=== PATIENT | female | born 1965 | race Hispanic/Latino ===

== ENCOUNTER 2017-07-10 06:37 | Emergency (ER) | payer MEDICAID ==
[2017-07-10 06:52] VITALS: BP 120/70; PULSE 86; RESP 18; TEMP 97.8; O2SAT 96
--- NOTE | 2017-07-10 07:28 | ED PDOC ---
HPI: Eye Injury/Pain Time Seen by Provider: 07/10/17 07:05 Chief Complaint (Nursing): Eye Problem Chief Complaint (Provider): Eye Problem History Per: Patient History/Exam Limitations: no limitations Onset/Duration Of Symptoms: Days (x3) Current Symptoms Are (Timing): Still Present Additional Complaint(s): Margo Gutierrez is a 51 year old female that presents to the ED with a chief complaint of right eye pain and swelling that she has been experiencing for the past three days. Patient reports that when her discomfort began she started rubbing her right eyelid, leading to swelling. She states that it has since become slightly red and painful. Patient denies any fever, chills, difficulty moving eye, or any double vision. She additionally states that around two months ago she was seen by her doctor for a similar problem, for which she was put on a course of Tobramycin eye drops and Amoxicillin, which resolved her symptoms. Of Note: Patient's PMD is not available until 07/15/17, which is the reason for her ED visit. Past Medical History Reviewed: Historical Data, Nursing Documentation, Vital Signs Vital Signs: Last Vital Signs Temp 97.8 F 07/10/17 06:49 Pulse 86 07/10/17 06:49 Resp 18 07/10/17 06:49 BP 120/70 07/10/17 06:49 Pulse Ox 96 07/10/17 06:49 - Medical History PMH: Anxiety, Depression Denies: Chronic Kidney Disease - Surgical History Surgical History: Cholecystectomy - Family History Family History: States: Unknown Family Hx - Home Medications Home Medications: Ambulatory Orders Medication Instructions Recorded Aripiprazole [Abilify] 30 mg PO DAILY 01/22/15 Cholecalciferol (Vitamin D3) 1 pow NA WE 01/22/15 [Vitamin D3] Cyanocobalamin [Vitamin B12] mcg PO BID 01/22/15 Fluphenazine Hydrochloride 0.5 mg PO DAILY 01/22/15 [Prolixin] Folic Acid 1 mg PO BID 01/22/15 LORazepam [Ativan] 0.5 mg PO DAILY PRN 01/22/15 Naproxen 375 mg PO Q8 PRN #21 tab 01/22/15 buPROPion XL [Wellbutrin] 150 mg PO DAILY 01/22/15 Naproxen 500 mg PO BID PRN #14 tab 04/03/15 Oxycodone HCl/Acetaminophen 1 tab PO Q6 PRN #10 tab 04/03/15 [Percocet 325 mg-5 mg] Sulfamethoxazole/Trimethoprim 1 tab PO BID #14 tab 07/10/17 [Bactrim DS 800 mg-160 mg] - Allergies Allergies/Adverse Reactions: Allergies Allergy/AdvReac Type Severity Reaction Status Date / Time No Known Allergies Allergy Verified 04/03/15 15:49 Review of Systems ROS Statement: Except As Marked, All Systems Reviewed And Found Negative Constitutional: Negative for: Fever, Chills Eyes: Positive for: Pain (slight pain around right eyelid). Negative for: Vision Change (No double vision or blurred vision) ENT: Negative for: Ear Pain, Nose Congestion, Throat Pain Respiratory: Negative for: Cough Physical Exam - Reviewed Nursing Documentation Reviewed: Yes Vital Signs Reviewed: Yes - Physical Exam Appears: Positive for: Non-toxic, No Acute Distress Head Exam: Positive for: ATRAUMATIC, NORMOCEPHALIC Skin: Positive for: Normal Color, Warm Eye Exam: Positive for: EOMI, PERRL, Other (Upper right eyelid swelling without induration. Mild erythema. There is a small abrasion in the upper eyelid where the edge of the lashes are. There is no periorbital TTP. No palpable step off. ) . Negative for: Normal appearance ENT: Positive for: Normal ENT Inspection, TM Is/Are (unremarkable). Negative for: Nasal Congestion, Pharyngeal Erythema Neck: Positive for: Normal (Normal adenopathy), Supple Cardiovascular/Chest: Positive for: Regular Rate, Rhythm. Negative for: Murmur Respiratory: Positive for: Normal Breath Sounds. Negative for: Wheezing Lymphatic: Negative for: Adenopathy (no neck adenopathy) Neurologic/Psych: Positive for: Alert, Oriented. Negative for: Motor/Sensory Deficits - ECG O2 Sat by Pulse Oximetry: 96 (RA) Pulse Ox Interpretation: Normal Medical Decision Making Medical Decision Making: Impression: Eyelid Infection/Cellulitis Plan: * Patient will be given an Rx for Bactrim and advised to follow up with PMD. Patient is stable for discharge home. Scribe Attestation: Documented by Iliana Jolly, acting as a scribe for Mami Perez MD. Provider Scribe Attestation: All medical record entries made by the Scribe were at my direction and personally dictated by me. I have reviewed the chart and agree that the record accurately reflects my personal performance of the history, physical exam, medical decision making, and the department course for this patient. I have also personally directed, reviewed, and agree with the discharge instructions and disposition Disposition - Clinical Impression Clinical Impression: Blepharitis of eyelid of right eye - Patient ED Disposition Is Patient to be Admitted: No - Disposition Referrals: Radha Ennis MD [Medical Doctor] - Disposition: Routine/Home Disposition Time: 07:25 Condition: STABLE Prescriptions: Sulfamethoxazole/Trimethoprim [Bactrim DS 800 mg-160 mg] 1 tab PO BID #14 tab Instructions: Cellulitis (ED), Blepharitis (ED) Forms: [facility] ([place]), [facility] ED School/Work Excuse
== END 2017-07-10 07:41 | disposition home or self-care (01) ==
LOC: H.ER 06:37
DX: H01.001 Unspecified blepharitis right upper eyelid (principal)

== ENCOUNTER 2017-07-11 07:39 | Emergency (ER) | payer MEDICAID ==
[2017-07-11 07:49] VITALS: TEMP 97
[2017-07-11 07:50] VITALS: BMI 28.8
--- NOTE | 2017-07-11 08:14 | ED PDOC ---
HPI: Eye Injury/Pain Time Seen by Provider: 07/11/17 07:58 Chief Complaint (Nursing): Eye Problem Chief Complaint (Provider): Right Upper eyelid Swelling History/Exam Limitations: no limitations Onset/Duration Of Symptoms: Days Current Symptoms Are (Timing): Still Present Injury To Eye?: No Additional Complaint(s): Margo Gutierrez, a 51 year old female, presents to the ED complaining of right upper eyelid swelling. The patient reports that she was seen yesterday for the same symptoms and was started on bactrim. She states that she took 3 doses of the medication but it has offered no relief. Denies fever, pain on eye movement , discharge from eye. Past Medical History Reviewed: Historical Data, Nursing Documentation, Vital Signs Vital Signs: Last Vital Signs Temp 97 F L 07/11/17 07:48 Pulse 76 07/11/17 07:48 Resp BP 133/48 L 07/11/17 07:48 Pulse Ox 97 07/11/17 07:48 - Medical History PMH: Anxiety, Depression Denies: Chronic Kidney Disease - Surgical History Surgical History: Cholecystectomy - Family History Family History: States: Unknown Family Hx - Social History Current smoker - smoking cessation education provided: No Ex-Smoker (has not smoked in the last 12 months): No Alcohol: Other (yes) Drugs: Denies - Home Medications Home Medications: Ambulatory Orders Medication Instructions Recorded Aripiprazole [Abilify] 30 mg PO DAILY 01/22/15 Cholecalciferol (Vitamin D3) 1 pow NA WE 01/22/15 [Vitamin D3] Cyanocobalamin [Vitamin B12] mcg PO BID 01/22/15 Fluphenazine Hydrochloride 0.5 mg PO DAILY 01/22/15 [Prolixin] Folic Acid 1 mg PO BID 01/22/15 LORazepam [Ativan] 0.5 mg PO DAILY PRN 01/22/15 Naproxen 375 mg PO Q8 PRN #21 tab 01/22/15 buPROPion XL [Wellbutrin] 150 mg PO DAILY 01/22/15 Naproxen 500 mg PO BID PRN #14 tab 04/03/15 Oxycodone HCl/Acetaminophen 1 tab PO Q6 PRN #10 tab 04/03/15 [Percocet 325 mg-5 mg] Sulfamethoxazole/Trimethoprim 1 tab PO BID #14 tab 07/10/17 [Bactrim DS 800 mg-160 mg] Tobramycin 0.3% [Tobramycin 5 Ml] 1 drop OP TID #1 bottle 07/11/17 - Allergies Allergies/Adverse Reactions: Allergies Allergy/AdvReac Type Severity Reaction Status Date / Time No Known Allergies Allergy Verified 04/03/15 15:49 Review of Systems ROS Statement: Except As Marked, All Systems Reviewed And Found Negative Eyes: Positive for: Other (right upper eyelid swelling). Negative for: Pain Physical Exam - Reviewed Nursing Documentation Reviewed: Yes Vital Signs Reviewed: Yes - Physical Exam Appears: Positive for: Non-toxic, No Acute Distress Head Exam: Positive for: ATRAUMATIC, NORMAL INSPECTION, NORMOCEPHALIC Skin: Positive for: Normal Color, Warm, Dry. Negative for: Diaphoresis Eye Exam: Positive for: EOMI (no pain on EOM), PERRL. Negative for: Normal appearance (Right eye minimal swelling with minimal erythema to right upper eyelid), Conjunctival injection (conjunctiva clear) Cardiovascular/Chest: Positive for: Regular Rate, Rhythm, Chest Non Tender. Negative for: Tachycardia Respiratory: Positive for: Normal Breath Sounds. Negative for: Wheezing, Respiratory Distress Neurologic/Psych: Positive for: Alert, Oriented - ECG O2 Sat by Pulse Oximetry: 97 (RA) Pulse Ox Interpretation: Normal Medical Decision Making Medical Decision Makin Initial Impression 51 y/o female presenting with right upper eyelid swelling Initial Plan: * Reevaluation Scribe Attestation Documented by Radhika Cooper acting as a scribe for Adiel Al MD. Provider Attestation All medical record entries made by the Scribe were at my direction and personally dictated by me. I have reviewed the chart and agree that the record accurately reflects my personal performance of the history, physical exam, medical decision making, and the department course for this patient. I have also personally directed, reviewed, and agree with the discharge instructions and disposition. Disposition - Clinical Impression Clinical Impression: Blepharitis of eyelid of right eye - Patient ED Disposition Is Patient to be Admitted: No - Disposition Referrals: Chai Grace MD [Staff Provider] - Disposition: Routine/Home Disposition Time: 08:30 Condition: FAIR Prescriptions: Tobramycin 0.3% [Tobramycin 5 Ml] 1 drop OP TID #1 bottle Instructions: Blepharitis (ED) Forms: [facility] ([place])
[2017-07-11 08:35] VITALS: BP 128/78; PULSE 78; RESP 17
[2017-07-11 08:51] VITALS: O2SAT 97
== END 2017-07-11 08:48 | disposition home or self-care (01) ==
LOC: H.ER 07:39
DX: H01.003 Unspecified blepharitis right eye, unspecified eyelid (principal); F32.9 Major depressive disorder, single episode, unspecified; F41.9 Anxiety disorder, unspecified